=== PATIENT | male | born 1965 | race Caucasian/White ===

== ENCOUNTER 2017-05-09 15:50 | Emergency (ER) | payer SELFPAY ==
[~2017-05-09] VITALS: Ht 182.9 cm; Wt 95.2 kg
--- NOTE | ~2017-05-09 | EKG ---
PATIENT: RADHA RUIZ UNIT #: [id number] Ventricular Rate: 104 BPM Atrial Rate: 104 BPM P-R Interval: 152 ms QRS Duration: 90 ms Q-T Interval: 354 ms QTC Calculation(Bezet): 465 ms P [place]: 55 degrees Calculated R [place]: 24 degrees Calculated T [place]: 71 degrees Diagnosis Line: Sinus tachycardia Diagnosis Line: Minimal voltage criteria for LVH, may be normal Diagnosis Line: variant Diagnosis Line: Borderline ECG Diagnosis Line: When compared with ECG of 01-AUG-2016 18:47, Diagnosis Line: Non-specific change in ST segment in Inferior Diagnosis Line: leads Diagnosis Line: ST no longer depressed in Anterolateral leads Diagnosis Line: T wave inversion no longer evident in Inferior Diagnosis Line: leads Diagnosis Line: Confirmed by SUN VOSS MD ([id number]) on 05/12/2017 Diagnosis Line: 7:31:33 PM INTERPRETING MD: SHANIKA VANG
--- NOTE | ~2017-05-09 | CR72 ---
[facility]. [facility] A Service of [facility] & [facility] RADIOLOGY TEXT RESULTS PATIENT: RADHA RUIZ LOCATION: SED : 69 UNIT #: [id number] AGE: [address]: TONY MÁRQUEZ SEX: M ORDER DR: [id number] [place] [id number] MR#: [id number] Acc #: [id number] NAME: RADHA RUIZ. : 1965 SEX: M STUDY DATE/TIME: 05/09/2017 17:11 UNIT: SED ROOM: STUDY DESCRIPTION: CR Chest Single View Portable Attending Physician: Tony Márquez R.N. Ordering Physician: Tony Márquez R.N. Primary Care Physician: No Primary Care Physician MEDICAL IMAGING REPORT This report is preliminary unless electronic signature is present. EXAM Portable chest x-ray 05/09/2017 HISTORY Short of air. Chest pain. 1 week duration, worse this afternoon. Wheezing. 1 pack per day smoker. FINDINGS AP radiograph of the chest is presented. Comparison 08/01/2016. The lungs are well inflated. There is no evidence of acute infectious or inflammatory disease, pleural effusion or pneumothorax. No suspicious nodule. The heart is normal in size. Bony structures unremarkable. I Dictated by... Micah Mcdaniel M.D. THIS IS AN ELECTRONICALLY VERIFIED REPORT Micah Mcdaniel M.D. at 05/11/2017 4:57 PM LINDSAY/lora TD: 05/10/2017 09:30 JOB #: [id number] MEDICAL IMAGING REPORT Page 1 of 1
[~2017-05-09 15:50] MED LIST: ADVAIR DISKU1 250/50; AMLODIPINE BESYL5 MG PO; AMOX TR-K CLV 81 TA1 PO; AMOXIL500 M2 PO; BP MED; CATAPRES0.1 MG PO; CIPRO PO; CIPRO250 MG PO; FLOMAX0.4 M1 PO; FUROSEMIDE40 MG PO; HYZAAR PO; IBUPROFEN800 MG PO; KCL PO; LASIX PO; LOPRESSOR100 MG PO; LORTAB 5/500 TA1 TA2 PO; LOTREL PO; MAG-OXIDE400 MG PO; NAPROSYN500 MG PO; NO MEDICATIONS; NORVASC10 MG PO; PERCOCET 51 UDTAB 5/ PO; PERCOCET5/325 PO; PHENERGAN25 M1 PO; PHENERGAN25 MG PO; PREDNISONE PO; PREDNISONE10 MG/DOSE PO; TOPROL XL PO; VOLTAREN75 MG PO
[2017-05-09 17:52] LABS: BASOPHIL# 0.1 X10e3 (0-0.3); BASOPHIL% 0.6 % (0-2.5); EOSINOPHIL# 1.8 X10e3 (0-0.7); EOSINOPHIL% 20.8 % (0.0-7.0); HEMATOCRIT 37.9 % (38.0-50.0); HEMOGLOBIN 12.8 gm/dL (13.0-16.0); LYMPHOCYTE# 1.1 X10e3 (1.0-3.5); LYMPHOCYTE% 12.9 % (17.0-45.0); MEAN CELL VOLUME 101.9 FL (83-96); MEAN CORPUSCULAR HEMOGLOBIN 34.4 PG (28-34); MEAN CORPUSCULAR HGB CONC 33.8 g/dL (30-36); MEAN PLATELET VOLUME 7.5 FL (6.5-11.5); MONOCYTE# 0.5 X10e3 (0-1.0); MONOCYTE% 5.6 % (3.0-12.0); NEUTROPHIL# 5.3 X10e3 (1.5-7.1); NEUTROPHIL% 60.1 % (40-75); PLATELET COUNT 317 X10e3 (140-420); RED BLOOD COUNT 3.72 X10e (3.90-5.60); RED CELL DISTRIBUTION WIDTH 15.7 % (11.0-15.5); WHITE BLOOD COUNT 8.8 X10e3 (4.0-10.5)
[2017-05-09 18:00] LABS: POC - CKMB 1.4 ng/mL (0.0-7.9); POC - MYOGLOBIN 65.2 ng/mL (0.0-169.0); POC - TROPONIN <0.05 ng/mL (<=0.05)
[2017-05-09 18:03] LABS: DIFF IND YES
[2017-05-09 18:21] LABS: ANISOCYTOSIS SL; PLATELET ESTIMATE NORMAL (NORMAL)
[2017-05-09 18:23] LABS: ALBUMIN SERUM 3.9 g/dL (3.5-5.0); BILIRUBIN, DIRECT 0.3 mg/dL (0.0-0.2); BILIRUBIN,TOTAL 2.3 mg/dL (0.2-2.0); BUN/CREATININE RATIO 11.11; CALCIUM SERUM 7.9 mg/dL (8.4-10.2); CREATININE SERUM 0.9 mg/dL (0.6-1.4); GLOM FILT RATE Estimated 99.2 mL/min (>60); PROTEIN TOTAL SERUM 7.1 g/dL (6.0-8.3)
[2017-05-09 18:24] LABS: POTASSIUM 2.7 mmol/L (3.5-5.1)
== END 2017-05-09 19:55 | disposition home or self-care (01) ==
LOC: SED 15:50
PROVIDERS: Nurse Practitioner
DX: J45.909 Unspecified asthma, uncomplicated (principal); E87.6 Hypokalemia; R03.0 Elevated blood-pressure reading, without diagnosis of hypertension; K50.90 Crohn's disease, unspecified, without complications; F17.210 Nicotine dependence, cigarettes, uncomplicated; Z98.890 Other specified postprocedural states
CPT/HCPCS: 36415; 71010; 80048; 80076; 82553; 83874; 84484; 85025; 93005; 94640; 99285